=== PATIENT | female | born 1990 | race Caucasian/White ===

== ENCOUNTER 2016-11-29 07:25 | Emergency (ER) | payer MEDICAID ==
--- NOTE | 2016-11-29 08:20 | ER NURSING DOCUMENTATION ---
Nurse's Notes [facility] Name:Seema Tan Age:26 yrs Sex:Female :1990 Arrival Date:11/29/2016 Time:07:25 Bed1 Private MD: Diagnosis:Multiple Rib Closed Fractures;Chest Wall Strain;Cough Presentation: 11/29 07:41 Presenting complaint: Patient states: pt states she has right sided rib pain that is st worst with deep breathing and coughing. Transition of care: Home. 07:41 Acuity: JOEY 4 st 07:41 Method Of Arrival: Private Vehicle st Triage Assessment: 07:40 General: Appears in no apparent distress, Behavior is cooperative. Pain: Complains of st pain in right lateral posterior chest and right lateral anterior chest Pain currently is 7 out of 10 on a pain scale. Pain began 2-3 days ago Aggravated by deep breathing and coughing. Cardiovascular: No deficits noted. Respiratory: Airway is patent Respiratory effort is even, unlabored, Respiratory pattern is regular, symmetrical, Breath sounds with wheezes in right posterior upper lobe, right posterior middle lobe and right posterior lower lobe Reports cough that is productive, for a month pt is taking an inhaler as needed for that. GI: No deficits noted. Abdomen is obese. Musculoskeletal: Tenderness present in right lateral posterior chest and right lateral anterior chest. 07:56 General: Appears Behavior is. st Historical: - Allergies: Sulfa (Sulfonamide Antibiotics); Amoxicillin; - Home Meds: 1. ProAir HFA inhalation - PMHx: childhood asthma; - PSHx: None; - Tetanus: unknown will f/u with PCP. - Ebola Screening: : Patient denies exposure to infectious person. Patient denies travel to an Ebola-affected area in the 21 days before illness onset. . - Immunization history: Pneumococcal vaccine status is unknown. - Social history: Smoking status: Patient states was never smoker of tobacco. Patient uses alcohol occasionally. Patient/guardian denies using marijuana. Screenin:55 Infectious Disease Risk None. Abuse screen: Denies threats or abuse. Denies injuries st from another. pt feels safe at home. Nutritional screening: No deficits noted. Vital Signs: 07:34 BP 150 / 89 (auto/); Pulse 77; Resp 20; Temp 97.8; Pulse Ox 97% ; Pain 7/10; st ED Course: 07:29 Patient arrived in ED. ama 07:37 Alesia Bennett RN is Primary Nurse. st 07:41 Jamie Zaidi MD is Attending Physician. tl1 07:[address] 07:47 Patient moved to radiology. mr 07:55 Valuables Remains with patient Patient has correct armband on for positive st identification. Placed in gown. Bed in low position. 07:59 Patient moved back from radiology. pm1 Administered Medications: No medications were administered Outcome: 08:07 Discharge ordered by . tl1 08:20 Discharged to home ambulatory. st 08:20 Condition: stable 08:20 Discharge instructions given to patient, Instructed on discharge instructions, follow up and referral plans. medication usage, Prescriptions given X 2. 08:20 Patient [address] the ED. st 04/02 09:17 Discharge F/U Call: Unable to reach: no answer nf Signatures: Alesia Bennett RN RN st Friel, Nicole, RN RN nf Angel Ansari pm1 Geovanni Sellers, Reg Reg Jamie Levy MD MD tl1 Ger Rodriguez mr
--- NOTE | 2016-11-29 08:20 | ER PHYSICIAN DOCUMENTATION ---
Physician Documentation [facility] Name:Seema Tan Age:26 yrs Sex:Female :1990 Arrival Date:11/29/2016 Time:07:25 Bed1 Private MD: Jamie Watkins Disposition: 11/29 09:00 Chart complete. tl1 Disposition: 11/29/16 08:07 Discharged to Home/Self Care. Impression: Multiple Rib Closed Fractures, Chest Wall Strain, Cough. - Condition is Good. - Discharge Instructions: BRONCHITIS w/ Wheezing (Adult), CHEST WALL STRAIN. - Prescriptions for albuterol sulfate 90 mcg/actuation Inhalation HFA aerosol inhaler - inhale 2 puff by INHALATION route every 4 hours As needed PROVIDE WITH SPACER; 1 Inhaler. Prednisone 20 mg Oral Tablet - take 2 tablet by ORAL route once daily for 5 days; 10 tablet. - Work release form, Medical Reconciliation form form. - Follow up: Private Physician; When: 4- 6 days; Reason: Recheck today's complaints, Continuance of care. - Problem is new. - Symptoms have improved. HPI: 07:41 This 26 yrs old Female presents to ER with complaints of Flank Pain - R. tl1 07:41 . 26 y.o woman with one month history of cough. (She has a h/o asthma while younger) tl1 This started while she was living in [place], with cough, rhinorrhea and sore throat, but no f/c/s. She then started working up in housekeeping up in the [place] and noted that the cleaning chemicals made the cough worse. She then switched to the laundry, and her cough, though better, still persists. 2 days ago while folding sheets she noted the gradual onset or right lower lateral rib pain that is worse with movement and cough. No dyspnea. No f/c/s or hemoptysis. No LE PAIN or edema or other risk factors for PE. No hematuria or any other urinary symptoms. No trauma. Pain dose not radiate down into he leg.. Historical: - Allergies: Sulfa (Sulfonamide Antibiotics); Amoxicillin; - Home Meds: 1. ProAir HFA inhalation - PMHx: childhood asthma; - PSHx: None; - Tetanus: unknown will f/u with PCP. - Ebola Screening: : Patient denies exposure to infectious person. Patient denies travel to an Ebola-affected area in the 21 days before illness onset. . - Immunization history: Pneumococcal vaccine status is unknown. - Social history: Smoking status: Patient states was never smoker of tobacco. Patient uses alcohol occasionally. Patient/guardian denies using marijuana. ROS: 07:56 Respiratory: Positive for cough, shortness of breath, wheezing, Negative for tl1 07:56 Abdomen/GI: Negative for abdominal pain, nausea, vomiting, diarrhea, hematemesis, black/tarry stool, rectal bleeding. 07:56 Back: Positive for injury or acute deformity, decreased range of motion, pain with movement. 07:56 : Negative for injury or acute deformity, urinary symptoms, hematuria, pelvic pain, flank pain, burning with urination. 07:56 MS/extremity: Negative for acute changes, injury or acute deformity. 07:56 Skin: Negative for rash. 07:56 Neuro: Negative for altered mental status, dizziness, numbness, weakness. Exam: 07:58 Constitutional: This is a well developed, well nourished patient who is awake, alert, tl1 and in no acute distress. Head/Face: Normocephalic, atraumatic. Eyes: Pupils equal round and reactive to light, extra-ocular motions intact. Lids and lashes normal. Conjunctiva and sclera are non-icteric and not injected. Cornea within normal limits. Periorbital areas with no swelling, redness, or edema. ENT: Nares patent. No nasal discharge, no septal abnormalities noted. Tympanic membranes are normal and external auditory canals are clear. Oropharynx with no redness, swelling, or masses, exudates, or evidence of obstruction, uvula midline. Mucous membranes moist. Neck: Trachea midline, no thyromegaly or masses palpated, and no cervical lymphadenopathy. Supple, full range of motion without nuchal rigidity, or vertebral point tenderness. No Meningismus. Cardiovascular: Regular rate and rhythm with a normal S1 and S2. No gallops, murmurs, or rubs. Normal PMI, no JVD. No pulse deficits. Respiratory: Lungs have equal breath sounds bilaterally, clear to auscultation and percussion. No rales, rhonchi or wheezes noted. No increased work of breathing, no retractions or nasal flaring. 07:58 Abdomen/GI: Soft, non-tender, with normal bowel sounds. No distension or tympany. No tl1 guarding or rebound. No evidence of tenderness throughout. 07:58 Chest/axilla: Inspection: normal, Palpation: crepitus, is not appreciated, tenderness, that is moderate, right lower latera ribs. 07:58 Cardiovascular: Rate: normal, Rhythm: regular, Pulses: Heart sounds: normal, Edema: is not appreciated, JVD: is not appreciated. 07:58 Respiratory: the patient does not display signs of respiratory distress, Respirations: normal, Breath sounds: are normal. 07:58 Abdomen/GI: Inspection: abdomen appears normal, Bowel sounds: Palpation: abdomen is soft and non-tender. 07:58 Back: CVA tenderness, is absent. 07:58 : CVA tenderness, is absent. 07:58 Skin: Exam negative for acute changes. 07:58 Neuro: Orientation: Vital Signs: 07:34 BP 150 / 89 (auto/); Pulse 77; Resp 20; Temp 97.8; Pulse Ox 97% ; Pain 7/10; st MDM: 07:41 Patient medically screened. tl1 08:01 Differential diagnosis: nephrolithiasis, intercostal strain, rib fracture, pneumonia, tl1 PE, pleurisy, trauma. Data reviewed: vital signs, nurses notes, radiologic studies, and as a result, I will discharge patient. Test interpretation: by ED physician or midlevel provider: plain radiologic studies. Counseling: I had a detailed discussion with the patient and/or guardian regarding: the historical points, exam findings, and any diagnostic results supporting the discharge/admit diagnosis, radiology results, the need for outpatient follow up, the need to transfer to another facility, for higher level of care. Response to treatment: the patient's symptoms have mildly improved after treatment, and as a result, I will discharge patient. Dispensed Medications: No medications were administered Signatures: Alesia Bennett RN RN st Leigh, Tom, MD MD tl1
--- NOTE | 2016-12-03 07:26 | RADIOLOGY REPORT ---
Two views of the chest, without prior films for comparison, demonstrate the heart, vessels and lungs to be unremarkable. No infiltrate, fluid or pneumothorax is seen. IMPRESSION: Unremarkable two views of the chest. MTDD
== END 2016-11-29 08:20 | disposition home or self-care (01) ==
LOC: ER 07:25
DX: S23.41XA Sprain of ribs, initial encounter (principal); R05 Cough; R06.02 Shortness of breath; R06.2 Wheezing; X50.9XXA Other and unspecified overexertion or strenuous movements or postures, initial encounter
CPT/HCPCS: 71020; 99283